=== PATIENT | male | born 1940 | race Caucasian/White ===

== ENCOUNTER → 2023-10-23 11:54 | Outpatient (REF) | payer OTHER, SELFPAY | LOC: RAD 11:54 | PROVIDERS: ATTENDING PHYSICIAN Nurse Practitioner Family | DX: M79.672 Pain in left foot (principal) | CPT/HCPCS: 73620 ==

== ENCOUNTER → 2023-11-07 17:17 | Outpatient (REF) | payer OTHER, SELFPAY | LOC: RAD 17:17 | PROVIDERS: ATTENDING PHYSICIAN Nurse Practitioner Family | DX: R31.9 Hematuria, unspecified (principal) | CPT/HCPCS: 76775 ==

== ENCOUNTER 2023-11-28 13:55 | Emergency (ER) | payer OTHER, SELFPAY ==
[2023-11-28 14:00] VITALS: BP 139/69
--- NOTE | 2023-11-28 14:27 | ED.GENMED ---
History of Present Illness
General
Chief Complaint: Musculo-Skeletal Complaint
Source: patient
Exam Limitations: none
Time Seen by Provider: 11/28/23 14:12
History of Present Illness
History of Present Illness:
See MDM
Past History
Past History
ED Past Medical History: None
ED Past Surgical History: Orthopedic
Social History
Tobacco: Non-smoker
Alcohol: Daily
Personal:
Living: with family
Phy Exam
Physical Exam
Physical Exam:
See MDM
Course
Orders/Labs/Results
Orders:
Orders
11/28/23 14:16
Finger(s)/Thumb 2 View Lt [CR Finger(s)/thumb Min 2 Vw Lt] Urgent
Comment:
Reason For Exam: pain and swelling
Indicate Which Finger:: Little Finger
11/28/23 14:20
Ketorolac [Toradol] 30 mg IV NOW STA
11/28/23 14:37
Complete Blood Count/With Diff Urgent
Comprehensive Metabolic Panel Urgent
Uric Acid Urgent
Abnormal Lab Results
11/28/23
14:37
RBC 4.03 L 10^6/uL
(4.70-6.10)
Hgb 11.9 L g/dL
(13.0-18.0)
Hct 35.9 L %
(39.0-52.0)
Absolute Monos (auto) 0.9 H 10^3/uL
(0.1-0.6)
Monocytes % 9.7 H %
(1.7-9.3)
Glucose 105 H mg/dl
(70-99)
11/28/23 14:37
11/28/23 14:37
Vital Signs
Initial and Last Documented VS:
Initial Vital Signs
Temp Pulse Resp BP Pulse Ox
97.7 F 82 18 139/69 97
11/28/23 14:00 11/28/23 14:00 11/28/23 14:00 11/28/23 14:00 11/28/23 14:00
Last Documented Vital Signs
Temp Pulse Resp BP Pulse Ox
97.7 F 82 18 139/69 97
11/28/23 14:00 11/28/23 14:00 11/28/23 14:00 11/28/23 14:00 11/28/23 14:00
MDM/Problems Addressed
Differential Diagnosis Includes:
HPI and MDM Narrative:
83-year-old male presenting for left finger pain and swelling. He has noticed it over the past few days. Denies any trauma or cuts. Movements hurt. He has noticed some red streaking going down his finger as well
The fingers concerning for flexor tenosynovitis versus possible gout. Will obtain x-rays and obtain basic blood work. Orthopedics made aware
Physical exam
General: Well appearing and non-toxic
HEENT: protecting airway
Neck: appears supple
CV: No evidence of cyanosis
Resp: No accessory muscle use
Abd: Non-distended
Extremities: Swelling and erythema to left finger without obvious cut. Red streaking going down the hand. Pain with passive extension of finger. Sensation and cap refill intact
Neuro: alert
Psych: Normal affect
Skin: Intact
Problems Addressed including Acute and Chronic Conditions affecting care:
1. Left pinky finger swelling
Acuity: acute
Prognosis: stable
Details: Concern for flexor tenosynovitis versus possible gout. Will obtain x-ray and blood work and discussed case with orthopedics
Updates
X-ray without fracture. White blood cell count normal. Case rediscussed with orthopedics who came down to evaluate the patient. Given the exam findings per the orthopedist, no cut in the finger and normal white blood cell count, we discussed
treating with steroids and follow-up in the orthopedic office next. Patient states he has a history of gout
Differential Diagnosis (but not limited to): Flexor tenosynovitis, trauma, gout
Testing considered: Blood culture
Drug therapy (if applicable): OTC meds, please see d/c instruction regarding Rx drugs
Amount and/or Complexity of Data Reviewed
Clinical info obtained from: Patient
External data reviewed: N/A
Labs I independently reviewed (but not limited to): White blood cell count normal
Radiology: X-ray independently reviewed: Finger x-ray negative for fracture
Pulse Ox: not hypoxic
EKG independently reviewed: N/A
Medical Laboratory Technicians: N/A
Critical Care: N/A
Risk of Complication:
Social Determinants of health: Good social support
Discussed with other providers: Orthopedics
Escalation of Care includes Admit/Obs: After being observed in the Emergency Department, pt stable for discharge.
Occasional wrong word or 'sound a like' substitutions may have occurred due to the inherent limitations of voice recognition software. Read the chart carefully and recognize, using context, where substitutions have occurred.
*Critical Care Note
Total Time (30-74mins, 75-104mins- exclusive of procedures): Not Applicable
ED Attending Note
-
Portions of this chart may have been created with voice recognition software.� Occasional wrong word or��sound alike� substitutions may have occurred due to the inherent limitations of voice recognition software.
Discharge Plan
Departure
Patient Disposition: Home (Routine Discharge)
Date of Disposition: 11/28/23
Time of Disposition: 15:47
Patient with high blood pressure during this ER visit?: No
Discharge Problem:
Gout
Instructions: Gout ED
Prescriptions:
New
prednisone 10 mg tablet
See Rx Instructions .ROUTE .COMPLEX Qty: 30 0RF
Rx Instructions:
4 tabs day 1-3, 3 tabs day 4-6, 2 tabs day 7-9, 1 tabs day 10-12
Referrals:
Yamil Crawford MD [Family Provider] -
Jc Baer MD [Active] -
Activity Restrictions/Additional Instructions:
The finger is consistent with likely gout. Please take the steroids as prescribed. The orthopedist that you met today is Dr. Baer. He is the hand surgeon. Please call his office tomorrow to make an appointment to see him next week. Please let
the office know that Dr. Baer saw you in the emergency department and wants to see you at some point next week.
Please return for any worsening symptoms.
You may return at any time if you have further concerns.
Interventions
Interventions:
*Risk Screen - Suicide Last Done: 11/28/23 14:00
*General Assessment Last Done: 11/28/23 14:00
*Neglect/Abuse Screening Last Done: 11/28/23 14:00
ED-Musculoskeletal Assessment Last Done: 11/28/23 14:22
ED-Skin Assessment Last Done: 11/28/23 14:22
Discharge Date and Time
Print Language: PERUVIAN
[2023-11-28 14:28] VITALS: BMI 26.3
[2023-11-28] MEDS: TORADOL 30 MG IV (14:42)
[2023-11-28 14:51] LABS: % Basophils 0.6 % (0-2); % Eosinophils 1.7 % (0-6); % Immature Granulocytes 0.4 % (0-0.5); % Lymphocytes 21.1 % (20.5-51.1); % Monocytes 9.7 % (1.7-9.3); % Neutrophils 66.5 % (42.2-75.2); Absolute Basophils 0.1 10^3/uL (0-0.2); Absolute Eosinophils 0.2 10^3/uL (0-0.7); Absolute Lymphocytes 1.9 10^3/uL (1.2-3.4); Absolute Monocytes 0.9 10^3/uL (0.1-0.6); Hematocrit 35.9 % (39.0-52.0); Hemoglobin 11.9 g/dL (13.0-18.0); Mean Corp Hgb Conc. 33.1 g/dL (33.0-37.0); Mean Corpuscular Hgb 29.5 pg (27.0-31.0); Mean Corpuscular Volume 89.1 fL (80.0-94.0); Mean Platelet Volume 9.9 fL (7.4-10.4); Nucleated Red Blood Cells % 0 % (-); Platelet Count 272 10^3/uL (130-400); Red Blood Cell Count 4.03 10^6/uL (4.70-6.10); Red Cell Dist. Width 12.8 % (11.5-14.5)
[2023-11-28 15:14] LABS: ALT (SGPT) 19 U/L (0-50); AST (SGOT) 24 U/L (17-59); Albumin 4.1 g/dl (3.5-5.0); Alkaline Phosphatase 64 U/L (38-126); Blood Urea Nitrogen 19 mg/dl (9-20); Calcium 9.3 mg/dl (8.4-10.2); Carbon Dioxide 27 mmol/L (22-30); Chloride 107 mmol/L (98-107); Estimated Creatinine Clearance 47 ml/min; Glucose 105 mg/dl (70-99); Potassium 4.2 mmol/L (3.5-5.1); Sodium 139 mmol/L (135-145); Total Bilirubin 0.7 mg/dl (0.2-1.3); Total Protein 6.8 g/dl (6.3-8.2); Uric Acid 7.3 mg/dl (3.5-8.5); eGFR 59.63
[2023-11-28] MEDS: DELTASONE 40 MG PO (15:54)
== END 2023-11-28 16:01 | disposition home or self-care (01) ==
LOC: EMR 13:55
PROVIDERS: EMERGENCY PHYSICIAN Student in an Organized Health Care Education/Training Program; FAMILY PHYSICIAN Internal Medicine Geriatric Medicine
DX: M10.9 Gout, unspecified (principal); R22.32 Localized swelling, mass and lump, left upper limb
CPT/HCPCS: 99283; 96374; 73140; 80053; 84550; 85025

== ENCOUNTER → 2023-12-05 14:45 | Outpatient (REF) | payer OTHER, SELFPAY | LOC: PAVMRI 14:45 | PROVIDERS: ATTENDING PHYSICIAN Nurse Practitioner Family | DX: R41.840 Attention and concentration deficit (principal); R41.3 Other amnesia | CPT/HCPCS: 70551 ==

== ENCOUNTER 2023-12-19 04:11 | Inpatient (IN) | payer OTHER, SELFPAY ==
[2023-12-18 23:54] VITALS: BP 130/63
[2023-12-19] VITALS (15 sets, daily range): BP systolic 91–152; BP diastolic 53–82; PULSE 75; BMI 25.9
[2023-12-19 00:48] LABS: Urine Albumin 1+ (Neg - Trace); Urine Bilirubin 1+ (Negative); Urine Character Slightly Cloudy (Clear); Urine Color Amber; Urine Glucose Negative (Negative); Urine Ketone 2+ (Negative); Urine Leukocyte Trace (Negative); Urine Nitrite Negative (Negative); Urine Occult Blood 4+ (Negative); Urine Specific Gravity 1.025 (<1.030); Urine Urobilinogen 1+ (Neg - 1+)
[2023-12-19 00:51] LABS: % Basophils 0.3 % (0-2); % Eosinophils 0.1 % (0-6); % Immature Granulocytes 0.4 % (0-0.5); % Monocytes 8.4 % (1.7-9.3); % Neutrophils 84.8 % (42.2-75.2); Absolute Immature Granulocytes 0.1 10^3/uL (0-0.05); Absolute Lymphocytes 0.8 10^3/uL (1.2-3.4); Absolute Monocytes 1.2 10^3/uL (0.1-0.6); Hematocrit 33.2 % (39.0-52.0); Hemoglobin 11.6 g/dL (13.0-18.0); Mean Corp Hgb Conc. 34.9 g/dL (33.0-37.0); Mean Corpuscular Hgb 30.2 pg (27.0-31.0); Mean Corpuscular Volume 86.5 fL (80.0-94.0); Mean Platelet Volume 11.1 fL (7.4-10.4); Nucleated Red Blood Cells % 0 % (-); Platelet Count 190 10^3/uL (130-400); Red Blood Cell Count 3.84 10^6/uL (4.70-6.10); Red Cell Dist. Width 13.2 % (11.5-14.5); White Blood Cell Count 14.1 10^3/uL (4.8-10.8)
[2023-12-19 00:56] LABS: ALT (SGPT) 36 U/L (0-50); AST (SGOT) 42 U/L (17-59); Albumin 4.3 g/dl (3.5-5.0); Alkaline Phosphatase 64 U/L (38-126); Blood Urea Nitrogen 28 mg/dl (9-20); Calcium 9.4 mg/dl (8.4-10.2); Carbon Dioxide 20 mmol/L (22-30); Chloride 103 mmol/L (98-107); Glucose 111 mg/dl (70-99); Potassium 4.8 mmol/L (3.5-5.1); Sodium 139 mmol/L (135-145); Total Bilirubin 2.4 mg/dl (0.2-1.3); Total Protein 7.1 g/dl (6.3-8.2); eGFR 54.17
[2023-12-19 00:57] LABS: COVID-19 Antigen Negative (Negative)
--- NOTE | 2023-12-19 01:31 | ED.GENMED ---
History of Present Illness
General
Chief Complaint: Fever
Source: patient and previous hospital records (ED visit November 28, 2023 with complaints of pain, swelling, redness left small digit.)
Exam Limitations: none
Time Seen by Provider: 12/19/23 01:15
Nursing documentation reviewed up to this point in time: agreed with
History of Present Illness
History of Present Illness:
This is an 83-year-old gentleman who resides at home independently. He has history of polyarthropathy, gout, hyperlipidemia as well as history of mild cognitive decline. Arrives via EMS tonight with complaints of bilateral foot pain that he admits
has been an ongoing issue for several months. He states he has an initial appointment with orthopedics versus podiatry tomorrow. Bilateral foot pain was worse tonight accompanied with generalized weakness and is noted to be acutely febrile with
oral temperature 101.4 �F. Patient was unaware that he was running a fever.
He was evaluated in this ED on November 27 with complaints of several day history of pain, redness and swelling left small finger. Concern was for acute gout versus tenosynovitis. Unremarkable laboratory studies, unremarkable x-ray imaging and no
evidence of skin abrasion etc. Evaluated at bedside by orthopedics and recommended a course of steroids. He was prescribed 12-day course of tapering steroids which he states he completed. He is unsure if there was any improvement in his finger
redness and swelling, perhaps mild improvement but it persists and may now be a bit worse.
He denies cough nor shortness of breath, no headache, no neck nor back pain.
He does admit to at least 6-month history of urinary frequency, intermittent dysuria but overall he believes this has been unchanged. No abdominal pain. No nausea or vomiting, no diarrhea or constipation. No recent falls.
He is unsure of his daily medications but upon review of records he is maintained on rosuvastatin, tamsulosin, donepezil.
Upon review of records, patient evaluated in the ED November 27, started on steroids and had a follow-up appointment with PCP December 02 which noted much improvement in pain and swelling of left little finger.
Past History
Past History
ED Past Medical History: Hypercholesterolemia (Mixed hyperlipidemia), Renal failure (Renal insufficiency) and Other (Polyarthritis, gout, mild dementia, BPH)
ED Past Surgical History: Orthopedic
Social History
Tobacco: Non-smoker
Alcohol: Daily (Occasional wine but has had no alcohol consumption for at least the past 3 to 4 weeks.)
Drug: None
Personal:
Living: with family
Employment: Retired
Family History
Family History: Other (Noncontributory)
Phy Exam
Physical Exam
Physical Exam:
GENERAL: 83-year-old gentleman appears his stated age, awake and alert, pleasant, appears in no acute distress. Mild confusion as to recent events but otherwise oriented x 3.
EYE: pupils equal and reactive. anicteric
NECK: Supple, nontender, no meningismus, no significant adenopathy.
ENT: posterior pharynx is clear, oral mucosa is moist. TM clear b/l, nares patent.
CARDIAC: Regular rate and rhythm. no murmur. No rub.
LUNGS: Clear breath sounds bilaterally, no acute respiratory distress, no wheezes/rales/rhonchi
ABDOMEN: Soft, nondistended, without focal tenderness, no r/g, no cvat. normoactive BS.
NEUROLOGICAL: Alert and oriented x3, no focal neuro deficits. Motor strength is 5/5 bilaterally. Gross sensation is intact.
SKIN: Mildly hot to touch and dry, normal color, small circular superficial subacute abrasion distal dorsal aspect of the left small digit.
MUSCULOSKELETAL: There is marked global erythema and soft tissue swelling of the left small digit with a small subacute superficial abrasion dorsal distal aspect of the left small digit. There is lymphangitis extending anteriorly from the left
small digit to the proximal palm. Markedly limited range of motion of left small digit related to pain. No fluctuance. There is marked erythema and joint effusion and pain bilateral first MTP joints as well as similar but less abundant soft
tissue swelling and erythema to the left fifth MTP joint. Moderate tenderness to bilateral distal feet. Peripheral pulses are full and equal b/l.
PSYCH: Normal and appropriate interaction.
Course
Orders/Labs/Results
Orders:
Orders
12/19/23 00:32
Comprehensive Metabolic Panel Urgent
12/19/23 00:33
COVID-19 Antigen Urgent
Source: Nasal Swab
Complete Blood Count/With Diff Urgent
Lactic Acid Q4H
Comment: ON ICE, CANCEL 2ND ORDER IF FIRST LACTIC ACID LEVEL <2
Urinalysis Reflex To Culture Urgent
Date Specimen was Collected: 12/19/23
Time Specimen was Collected: 00:00
Urine Microscopic Reflex Cult Urgent
12/19/23 01:27
Blood Culture Urgent
ELOISE Source: Blood/Venous
Specimen Description:
12/19/23 01:28
Add On- LAB Urgent
Tests Added?: uric acid; sed rate; CRP
Acetaminophen [Tylenol] 650 mg PO NOW STA
12/19/23 01:30
0.9% Sodium Chloride 1000 ml [Nss] 2,000 ml IV BOLUS
Foot, Left 3 View [CR Foot - Left Min 3 Views] Urgent
Comment:
Reason For Exam: pain swelling redness MTP hallux, MTP 5th toe
Foot, Right 3 View [CR Foot - Right Min 3 Views] Urgent
Comment:
Reason For Exam: pain, swelling, redness MTP hallux
12/19/23 04:00
Lactic Acid Q4H
Comment: ON ICE, CANCEL 2ND ORDER IF FIRST LACTIC ACID LEVEL <2
Abnormal Lab Results
12/19/23 12/19/23
00:32 00:33
WBC 14.1 H 10^3/uL
(4.8-10.8)
RBC 3.84 L 10^6/uL
(4.70-6.10)
Hgb 11.6 L g/dL
(13.0-18.0)
Hct 33.2 L %
(39.0-52.0)
MPV 11.1 H fL
(7.4-10.4)
Abs Immat Gran (auto) 0.1 H 10^3/uL
(0-0.05)
Absolute Neuts (auto) 12.0 H 10^3/uL
(1.4-6.5)
Absolute Lymphs (auto) 0.8 L 10^3/uL
(1.2-3.4)
Absolute Monos (auto) 1.2 H 10^3/uL
(0.1-0.6)
Neutrophils % 84.8 H %
(42.2-75.2)
Lymphocytes % 6.0 L %
(20.5-51.1)
Carbon Dioxide 20 L mmol/L
(22-30)
BUN 28 H mg/dl
(9-20)
Glucose 111 H mg/dl
(70-99)
Total Bilirubin 2.4 H mg/dl
(0.2-1.3)
Urine Ketones 2+ A
(Negative)
Ur Occult Blood Reflex 4+ A
(Negative)
Urine Bilirubin 1+ A
(Negative)
Leukocyte Esterase Rfl Trace A
(Negative)
Urine Albumin (Reflex) 1+ A
(Neg - Trace)
12/19/23 00:33
12/19/23 00:32
Vital Signs
Initial and Last Documented VS:
Initial Vital Signs
Temp Pulse Resp BP Pulse Ox
101.3 F H 106 20 130/63 96
12/18/23 23:54 12/18/23 23:54 12/18/23 23:54 12/18/23 23:54 12/18/23 23:54
Last Documented Vital Signs
Temp Pulse Resp BP Pulse Ox
101.3 F H 106 20 130/63 96
12/18/23 23:54 12/18/23 23:54 12/18/23 23:54 12/18/23 23:54 12/18/23 23:54
MDM/Problems Addressed
Differential Diagnosis Includes:
Patient presents with generalized weakness found to be acutely febrile.
Is noted to have generalized erythema and joint swelling of left small digit as well as bilateral feet primarily MTP joints. He admits that bilateral foot swelling and pain has been an ongoing issue for several weeks perhaps months thus acute fever
is less likely infectious arthropathy and probably more consistent with inflammatory arthropathy such as gout versus pseudogout.
With acute fever however must consider infectious arthropathy. Other consideration is UTI. Less likely COVID.
Chronic conditions affecting care: Psychiatric illness (Mild dementia), Kidney disease (Renal insufficiency) and Other (Concern for potential gout, polyarthropathy)
*Pulse Oximetry
Patient hypoxic: no
*Critical Care Note
Total Time (30-74mins, 75-104mins- exclusive of procedures): Not Applicable
Update Note
Update Note:
Labs show moderately elevated white blood cell count of 14.1, has trended up from normal level on November 27.
Creatinine essentially stable, 1.2 November 27, currently 1.3.
Total bili has trended up to 2.4 from 0.7 November 27. All other LFTs are normal. Patient has had no abdominal pain complaints and abdomen is soft and nontender.
Lactic acid is normal at 1.6.
Blood cultures have been added.
Urinalysis suspicious for UTI with greater than 100 RBCs, 15 WBCs and many bacteria.
COVID testing is negative.
Uric acid, CRP and sed rate are pending but will initiate IV antibiotic for coverage of UTI and due to advanced age, fever, concern for SIRS and also some concern for tenosynovitis left small digit, infectious polyarthropathy will admit to
hospitalist service.
ED Attending Note
-
Portions of this chart may have been created with voice recognition software.� Occasional wrong word or��sound alike� substitutions may have occurred due to the inherent limitations of voice recognition software.
Discharge Plan
Departure
Patient Disposition: Admit
Date of Disposition: 12/19/23
Time of Disposition: 01:59
Admit to: Med/Surg
Admit to doctor: Krish
Presentation/result/management discussed w/ accepting /DO: Hospitalist
Condition: Fair
Discharge Problem:
acute fever r/o sepsis, SIRS (systemic inflammatory response syndrome), Acute UTI (urinary tract infection), polyarthritis b/l feet, left small digit, cellulitis left small digit
Prescriptions:
No Action
prednisone 10 mg tablet
See Rx Instructions .ROUTE .COMPLEX Qty: 30 0RF
Rx Instructions:
4 tabs day 1-3, 3 tabs day 4-6, 2 tabs day 7-9, 1 tabs day 10-12
Referrals:
Zafar Miller DO [Family Provider] -
Discharge Date and Time
Print Language: MONGOLIAN
[2023-12-19 01:35] LABS: Lactic Acid 1.6 mmol/L (0.7-2.0)
[2023-12-19 01:38] LABS: Urine Amorphous Seen; Urine Bacteria Many (Negative); Urine Mucus Many; Urine Red Blood Cell >100 /HPF (0-2); Urine Squamous Cell >30 /LPF (Few)
[2023-12-19 02:04] LABS: Uric Acid 7.3 mg/dl (3.5-8.5)
[2023-12-19] MEDS: TYLENOL 650 MG PO (02:05)
[2023-12-19] MEDS: ZOSYN 50 IV ×4 (02:06→20:29)
[2023-12-19] MEDS: NSS 2000 IV (02:07)
[2023-12-19 02:25] LABS: Erythrocyte Sed Rate 48 mm/hour (0-20)
--- NOTE | 2023-12-19 02:28 | HPS.HSE ---
Family Physician
-
Family Physician: Zafar Miller
Chief Complaint
-
Joint Pain, Fatigue
History of Present Illness
Patient is an 83y M with PMH significant for senile dementia and gout who presents to ED complaining of bilateral foot pain. Patient notes that his foot pain has been ongoing for months. He was seen here in the ED on 11/27 with complaints of L
hand / finger pain. He was seen by Ortho in the ED and treated with a course of oral prednisone. He states that his symptoms did not improve much.
Patient called EMS this evening complaining of foot pain and was brought to the ED for evaluation.
At present, patient has difficulty recalling why he was brought to the ED. History is somewhat difficult to obtain.
He denies any sore throat, cough, N/V/D. He does report some burning with urination.
Medical History
Past Medical History
Past Medical History: Reports Other
Additional Past Medical History:
Senile Dementia
Gout
Past Surgical History: Reports Other
Additional Past Surgical History:
T&A
Social History
Tobacco: Non-smoker
Alcohol: None
Drug: None
Family History
Family History: Not pertinent
Allergies / Home Medications
Allergies reflects when Allergies were last updated in [facility].
Home Medications with original date entered in [facility]
Allergy/Medication List:
Allergies
Allergy/AdvReac Type Severity Reaction Status Date / Time
No Known Allergies Allergy Verified 12/18/23 23:54
Home Medications
prednisone 10 mg tablet See Rx Instructions .Route .COMPLEX #30 tabs 11/28/23
Review of Systems
-
History Source: Patient
A 12 point ROS was completed and negative except as noted: Yes
Constitutional: Reports Fatigue; Denies Fever or Chills
EENT: Denies Sore Throat
Respiratory: Denies Cough or Trouble Breathing
Cardiac: Denies Chest Pain or Palpitations
Abdomen/GI: Denies Abdominal Pain, Nausea, Vomiting or Diarrhea
: Reports Dysuria; Denies Incontinence
Musculoskeletal: Reports Joint Pain and Joint Swelling
Skin: Reports Other (Redness)
Neurological: Denies Dizzy or Headache
Psych: Reports Dementia; Denies Depression or Anxiety
Physical Exam
Vital Signs
Vital Signs
Temp Pulse Resp BP Pulse Ox
101.3 F H 80 16 138/68 96
12/18/23 23:54 12/19/23 02:15 12/19/23 02:15 12/19/23 01:03 12/19/23 01:30
Physical Exam
General: Other (83y M in no acute distress.)
HEENT: Moist mucous membranes and PERRLA
Respiratory: Clear; No Wheezes, Rales or Rhonchi
Cardiac: S1/S2 and Regular Rhythm; No Murmur
GI: Soft, Non Tender, Non Distended and Normal Bowel Sounds
Musculoskeletal: No Clubbing, No Cyanosis and Other (L 5th finger contracted / tender / erythematous - small abrasion over distal phalanx. b/l 1st MTP edema, erythema, tenderness.)
Neuro: Awake and Alert; No Oriented
Laboratory Results
-
12/19/23 00:33
12/19/23 00:32
Laboratory Results
Lactic Acid Cancelled 12/19/23 04:00
Total Bilirubin 2.4 mg/dl (0.2-1.3) H 12/19/23 00:32
AST 42 U/L (17-59) 12/19/23 00:32
ALT 36 U/L (0-50) 12/19/23 00:32
Alkaline Phosphatase 64 U/L (38-126) 12/19/23 00:32
Impression/Plan
-
A/P: Patient is an 83y M with PMH significant for gout and dementia who presents to ED complaining of bilateral foot pain.
Fever
Polyarthritis
- Admit for further evaluation and treatment.
- Seems likely that current symptoms represent gout / pseudogout.
- History is impaired by patient's cognitive issues.
- He was seen by Ortho after 11/27 ED visit and L 5th finger symptoms had improved on steroids.
- Now with recurrent L 5th finger erythema and bilateral 1st MTP erythema.
- Restart oral prednisone 40mg daily for now.
- Empiric abx given fever and follow-up culture data, clinical course, etc.
- Ortho evaluation.
- Check ESR, uric acid, etc.
Possible UTI
- Patient does complain of some dysuria.
- UA with RBC > WBC and negative nitrites - does not seem c/w infection.
- Also > 30 squamous cells indicating contaminated specimen.
- On abx as stated above. Follow-up culture results.
Hyperbilirubinemia
- Bilirubin today is 2.4. Previously normal / no h/o elevation.
- Given fever and hyperbili, will check abdominal US for further evaluation.
Senile Dementia
- Patient awake and alert but fairly confused in regards to details, history, etc in the ED.
- ? degree of acute TME due to infection, fever, etc.
- However, recent OP evaluation included MRI done on 12/04 which showed SEVERE bitemporal wasting c/w dementia.
- Suspect significant degree of chronic / progressive cognitive impairment.
- Note that patient currently lives alone / independently.
- Case Management evaluation for discharge planning.
DVT Prophylaxis: SCDs
Code Status: Full
[2023-12-19 05:29] LABS: Hematocrit 28.3 % (39.0-52.0); Hemoglobin 9.9 g/dL (13.0-18.0); Mean Corpuscular Hgb 30.6 pg (27.0-31.0); Mean Corpuscular Volume 87.3 fL (80.0-94.0); Mean Platelet Volume 10.9 fL (7.4-10.4); Platelet Count 179 10^3/uL (130-400); Red Blood Cell Count 3.24 10^6/uL (4.70-6.10); Red Cell Dist. Width 13.2 % (11.5-14.5); White Blood Cell Count 11.9 10^3/uL (4.8-10.8)
[2023-12-19 05:54] LABS: Blood Urea Nitrogen 27 mg/dl (9-20); Calcium 8.2 mg/dl (8.4-10.2); Carbon Dioxide 20 mmol/L (22-30); Chloride 107 mmol/L (98-107); Glucose 117 mg/dl (70-99); Potassium 4.3 mmol/L (3.5-5.1); Sodium 140 mmol/L (135-145); eGFR 59.63
[2023-12-19 06:21] LABS: TSH Reflex To Free T4 0.97 uIU/ml (0.47-4.68)
--- NOTE | 2023-12-19 07:54 | W.PN.UPDATE ---
Update Note
Progress Note Update
Full orthopedic consult dictated:
Dx: Polyarthritis (bilateral feet first MTP joint and left fifth finger) suspect likely gout/pseudogout
Plan: Agree with restarting oral prednisone, further workup for infectious process and check uric acid and observe for now.
--- NOTE | 2023-12-19 07:55 | EDRN ---
admission orders processed, pharmacy notified
--- NOTE | 2023-12-19 07:56 | EDRN ---
the pt is resting in stretcher in the lowest position, side rails up x2, call brantley within reach, HOB elevated, no s/s of distress, VS WNL, the pt is now afebrile, the pt has no c/o pain currently, no c/o SOB, the pt was oriented to using the call
brantley and the pt verbally stated that he understood, assessment documented in [facility], will continue to monitor the pt closely
[2023-12-19] MEDS: DELTASONE 40 MG PO (08:36)
[2023-12-19] MEDS: PROTONIX 40 MG PO (08:36)
[2023-12-19] MEDS: NSS 1000 IV ×2 (08:38→20:29)
--- NOTE | 2023-12-19 09:03 | EDRN ---
the pt was able to take his PO medications with water with no problem, VS WNL, NSS running at 125cc/hour, the pt was offered breakfast and the pt stated that he was not hungry, will continue to monitor the pt closely
--- NOTE | 2023-12-19 09:10 | EDRN ---
the pt pressed the call brantley and this RN entered the pts room, the pt stated that he had a bowel movement and was not able to hold it in, this RN cleaned the pt up and changed the pts gown, brief, and linens, the pt is now resting ins tretcher in
the lowest position, side rails up x2, call brantley within reach, HOB elevated, no s/s of distress, will continue to monitor the pt closely
--- NOTE | 2023-12-19 09:15 | EDRN ---
the pt was bladder scanned and straight cathed by this RN, per provider orders, the pt tolerated, the pt is resting in stretcher in the lowest position, side rails up x2, call brantley within reach, HOB elevated, no s/s of distress, will continue to
monitor the pt closelty
--- NOTE | 2023-12-19 10:07 | EDRN ---
IV team spoke to Dr. Hebert and confirmed that the pts LCW Dye central line is torn
--- NOTE | 2023-12-19 10:28 | W.PN.UPDATE ---
Update Note
Progress Note Update
Seen and examined independent of overnight physician. states improvement in foot pain.
General: nad,
HEENT: Moist mucous membranes
Respiratory: Clear; No Wheezes, Rales or Rhonchi
Cardiac: S1/S2 and Regular Rhythm; No Murmur
GI: Soft, Non Tender, Non Distended and Normal Bowel Sounds
Musculoskeletal: No Clubbing, No Cyanosis and Other (L 5th finger contracted / tender / erythematous - small abrasion over distal phalanx. b/l 1st MTP edema, erythema, tenderness.). LE no significant edema
Neuro: Awake and Alert; No Oriented
A/P: Patient is an 83y M with PMH significant for gout and dementia who presents to ED complaining of bilateral foot pain.
Polyarthritis
- Seems likely that current symptoms represent gout / pseudogout.
- History is impaired by patient's cognitive issues.
- He was seen by Ortho after 11/27 ED visit and L 5th finger symptoms had improved on steroids.
- Now with recurrent L 5th finger erythema and bilateral 1st MTP erythema.
- Restart oral prednisone 40mg daily for now.
- Ortho evaluation-agrees with steroids
- ESR/CRP high.
Sepsis likely 2/2 UTI-poa
- Patient does complain of some dysuria.
- UA with RBC > WBC and negative nitrites - does not seem c/w infection.
- Also > 30 squamous cells indicating contaminated specimen.
- On abx as stated above. Follow-up culture results. IVF for now and can be stopped later.
Hyperbilirubinemia
- Bilirubin today is 2.4. Previously normal / no h/o elevation.
- Given fever and hyperbili, will check abdominal US for further evaluation.
Senile Dementia
- Patient awake and alert but fairly confused in regards to details, history, etc in the ED.
- ? degree of acute TME due to infection, fever, etc.
- However, recent OP evaluation included MRI done on 8/15 which showed SEVERE bitemporal wasting c/w dementia.
- Suspect significant degree of chronic / progressive cognitive impairment.
- Note that patient currently lives alone / independently.
- Case Management evaluation for discharge planning.
DVT Prophylaxis: start lovenox
Code Status: Full
--- NOTE | 2023-12-19 10:43 | EDRN ---
the pt came back from ultrasound, the pt was placed back on the monitor, VS WNL, breakfast arrived and was warmed up for the pt per the pts request, the pt is sitting up in the stretcher eating breakfast, no complaints offered, will continue to
monitor the pt closely
--- NOTE | 2023-12-19 11:00 | EDRN ---
PT and OT came to the pts bedside and the pt refused because he stated that he was still eating his breakfast, PT and OT stated that they will come back, the pt is resting in stretcher in the lowest position, side rails up x2, call brantley within
reach, HOB elevated, no s/s of distress, VS WNL, the pt stated to this RN, 'I feel so much better after that catheter, i don't have anymore pain or pressure', will continue to monitor the pt closely
--- NOTE | 2023-12-19 11:11 | EDRN ---
this RN called the receiving unit and notified them that paper report was going to be tubed up
[2023-12-19 11:15] LABS: ALT (SGPT) 33 U/L (0-50); AST (SGOT) 48 U/L (17-59); Albumin 3.4 g/dl (3.5-5.0); Alkaline Phosphatase 53 U/L (38-126); Direct Bilirubin 0.5 mg/dl (0.0-0.4); Total Bilirubin 2.3 mg/dl (0.2-1.3); Total Protein 5.9 g/dl (6.3-8.2)
[2023-12-19] MEDS: FLOMAX 0.4 MG PO (12:04)
[2023-12-19] MEDS: LOVENOX 40 MG SC (18:02)
[2023-12-19] MEDS: CRESTOR 5 MG PO (18:02)
[2023-12-19] MEDS: ARICEPT 5 MG PO (21:29)
[2023-12-20] MEDS: ZOSYN 50 IV ×2 (02:31→09:30)
[2023-12-20 07:24] LABS: % Basophils 0.2 % (0-2); % Eosinophils 0.1 % (0-6); % Immature Granulocytes 0.7 % (0-0.5); % Lymphocytes 9.6 % (20.5-51.1); % Neutrophils 83.4 % (42.2-75.2); Absolute Immature Granulocytes 0.1 10^3/uL (0-0.05); Absolute Lymphocytes 1.2 10^3/uL (1.2-3.4); Absolute Monocytes 0.7 10^3/uL (0.1-0.6); Absolute Neutrophils 10.3 10^3/uL (1.4-6.5); Hemoglobin 9.8 g/dL (13.0-18.0); Mean Corp Hgb Conc. 33.8 g/dL (33.0-37.0); Mean Corpuscular Hgb 30.7 pg (27.0-31.0); Mean Corpuscular Volume 90.9 fL (80.0-94.0); Mean Platelet Volume 11.4 fL (7.4-10.4); Nucleated Red Blood Cells % 0 % (-); Platelet Count 180 10^3/uL (130-400); Red Blood Cell Count 3.19 10^6/uL (4.70-6.10); White Blood Cell Count 12.4 10^3/uL (4.8-10.8)
[2023-12-20 07:56] LABS: ALT (SGPT) 32 U/L (0-50); AST (SGOT) 56 U/L (17-59); Albumin 2.9 g/dl (3.5-5.0); Alkaline Phosphatase 49 U/L (38-126); Blood Urea Nitrogen 26 mg/dl (9-20); Calcium 8.5 mg/dl (8.4-10.2); Carbon Dioxide 22 mmol/L (22-30); Chloride 112 mmol/L (98-107); Estimated Creatinine Clearance 52 ml/min; Glucose 113 mg/dl (70-99); Potassium 4.2 mmol/L (3.5-5.1); Sodium 144 mmol/L (135-145); Total Bilirubin 0.6 mg/dl (0.2-1.3); Total Protein 5.4 g/dl (6.3-8.2); eGFR > 60.00
[2023-12-20 08:00] VITALS: BP 117/55
--- NOTE | 2023-12-20 08:17 | W.PN.UPDATE ---
Update Note
Progress Note Update
pt seen this AM; reports improving pain in his finger and 1st MTP; mild erythema of the left SF, moderate soft tissue swelling and mild erythema of the 1st MTP; more likely inflammatory arthropathy
-recommend continuing treatment with steroids, hold ABX; if symptoms worsen/do not respond to steroids and there is further concern for infection, please reengage with orthopedics; will follow peripherally at this time.
[2023-12-20] MEDS: FLOMAX 0.4 MG PO (09:35)
[2023-12-20] MEDS: DELTASONE 40 MG PO (09:35)
[2023-12-20] MEDS: PROTONIX 40 MG PO (09:35)
--- NOTE | 2023-12-20 12:19 | W.PN.HOSP.TC ---
Today's Communication/Plan
-
monitor off abx
check orthos
if positive, start IVF
PT/OT
Assessment / Plan
Assessment / Plan
General: nad,
HEENT: Moist mucous membranes
Respiratory: Clear; No Wheezes, Rales or Rhonchi
Cardiac: S1/S2 and Regular Rhythm; No Murmur
GI: Soft, Non Tender, Non Distended and Normal Bowel Sounds
Musculoskeletal: No Clubbing, No Cyanosis and Other (L 5th finger contracted / tender / erythematous - small abrasion over distal phalanx. b/l 1st MTP edema,
Neuro: Awake and Alert; No Oriented
A/P: Patient is an 83y M with PMH significant for gout and dementia who presents to ED complaining of bilateral foot pain.
Polyarthritis
- Seems likely that current symptoms represent gout / pseudogout.
- History is impaired by patient's cognitive issues.
- He was seen by Ortho after 11/27 ED visit and L 5th finger symptoms had improved on steroids.
- Now with recurrent L 5th finger erythema and bilateral 1st MTP erythema.
- Restart oral prednisone 40mg daily for now.
- Ortho evaluation-agrees with steroids and recs to stop abx.
- ESR/CRP high.
SIRS unclear
- Also > 30 squamous cells indicating contaminated specimen. Ucx with contamination. dc abx
Hyperbilirubinemia
- Bilirubin today is 2.4. Previously normal / no h/o elevation.
-abdomen US with no gallstone, cholecystitis biliary ductal dilatation. Mild hepatic steatosis. Subcentimeter echogenic structure with some biliary representing hemangioma however there is no prior imaging of the liver. Left renal calculi
nonobstructive. No hydronephrosis.
Senile Dementia
- Patient awake and alert but fairly confused in regards to details, history, etc in the ED.
- ? degree of acute TME due to infection, fever, etc.
- However, recent OP evaluation included MRI done on 12/04 which showed SEVERE bitemporal wasting c/w dementia.
- Suspect significant degree of chronic / progressive cognitive impairment.
- Case Management evaluation for discharge planning.
DVT Prophylaxis: start lovenox
Code Status: Full
PT/OT-CM.
Anticipated Discharge: Within 24 hours
Subjective/Interval History
-
Date of Service: December 20, 2023
states improvement in 5th digit erythema
states of some dizziness
Objective Data
-
Labs:
Laboratory Results
12/20/23
06:33
WBC 12.4 H
Hgb 9.8 L
Hct 29.0 L
Plt Count 180
Sodium 144
Potassium 4.2
Chloride 112 H
Carbon Dioxide 22
BUN 26 H
Creatinine 1.1
Glucose 113 H
Calcium 8.5
Total Bilirubin 0.6 D
AST 56
ALT 32
Alkaline Phosphatase 49
Vital Signs:
Vital Signs
Temp Pulse Resp BP Pulse Ox
98.0 F 76 18 117/55 99
12/20/23 08:00 12/20/23 08:00 12/20/23 08:00 12/20/23 08:00 12/20/23 08:00
I&O
12/19/23 12/20/23 12/21/23
06:59 06:59 06:59
Intake Total 1010 / 1010 720 / 720
Output Total 570 / 570 1000 / 1000
Balance 440 / 440 -280 / -280
[2023-12-20 13:55] VITALS: BP 144/64; BP 148/68; BP 96/67; PULSE 71; PULSE 73
[2023-12-20] MEDS: LR 1000 IV (15:04)
[2023-12-20 15:30] VITALS: BP 141/68
[2023-12-20 16:38] VITALS: BP 136/69; BP 145/67; PULSE 88; O2SAT 99
--- NOTE | 2023-12-20 16:54 | CM ---
Alert awake confused patient who lives with his Olivia who lives in special care at [facility]. Spoke with Cady at Independent living [facility] .
Pt is confused. He uses no adaptive devices.
No VN hx /No SNF hx
Pharmacy [facility] [address]
PCP DR Carlson
PLAN AWill need PT OT . Probable home with VN
[2023-12-20] MEDS: LOVENOX 40 MG SC (18:14)
[2023-12-20] MEDS: CRESTOR 5 MG PO (18:15)
[2023-12-20] MEDS: ARICEPT 5 MG PO (21:01)
[2023-12-20 23:00] VITALS: BP 118/61
[2023-12-21 08:00] VITALS: BP 120/61
[2023-12-21 08:29] LABS: % Basophils 0.1 % (0-2); % Immature Granulocytes 0.5 % (0-0.5); % Lymphocytes 12.1 % (20.5-51.1); % Monocytes 5.3 % (1.7-9.3); Absolute Immature Granulocytes 0.1 10^3/uL (0-0.05); Absolute Lymphocytes 1.4 10^3/uL (1.2-3.4); Absolute Monocytes 0.6 10^3/uL (0.1-0.6); Absolute Neutrophils 9.2 10^3/uL (1.4-6.5); Hematocrit 28.9 % (39.0-52.0); Hemoglobin 9.7 g/dL (13.0-18.0); Mean Corp Hgb Conc. 33.6 g/dL (33.0-37.0); Mean Corpuscular Hgb 30.6 pg (27.0-31.0); Mean Corpuscular Volume 91.2 fL (80.0-94.0); Mean Platelet Volume 11.7 fL (7.4-10.4); Nucleated Red Blood Cells % 0 % (-); Platelet Count 197 10^3/uL (130-400); Red Blood Cell Count 3.17 10^6/uL (4.70-6.10); Red Cell Dist. Width 13.3 % (11.5-14.5); White Blood Cell Count 11.2 10^3/uL (4.8-10.8)
[2023-12-21 08:42] LABS: ALT (SGPT) 35 U/L (0-50); AST (SGOT) 49 U/L (17-59); Albumin 3.1 g/dl (3.5-5.0); Alkaline Phosphatase 49 U/L (38-126); Blood Urea Nitrogen 22 mg/dl (9-20); Calcium 8.9 mg/dl (8.4-10.2); Carbon Dioxide 22 mmol/L (22-30); Chloride 111 mmol/L (98-107); Estimated Creatinine Clearance 57 ml/min; Glucose 112 mg/dl (70-99); Potassium 4.7 mmol/L (3.5-5.1); Sodium 143 mmol/L (135-145); Total Bilirubin 0.4 mg/dl (0.2-1.3); Total Protein 5.5 g/dl (6.3-8.2); eGFR > 60.00
[2023-12-21] MEDS: DELTASONE 40 MG PO (09:32)
[2023-12-21] MEDS: FLOMAX 0.4 MG PO (09:32)
[2023-12-21] MEDS: PROTONIX 40 MG PO (09:32)
--- NOTE | 2023-12-21 11:50 | W.PN.HOSP.TC ---
Today's Communication/Plan
-
Monitor symptoms
Home health care set up
Spouse asking for time for home set up to be completed
Monitor off IV fluids
Assessment / Plan
Assessment / Plan
General: nad,
HEENT: Moist mucous membranes
Respiratory: Clear; No Wheezes, Rales or Rhonchi
Cardiac: S1/S2 and Regular Rhythm; No Murmur
GI: Soft, Non Tender, Non Distended and Normal Bowel Sounds
Musculoskeletal: No Clubbing, No Cyanosis and Other (L 5th finger contracted / tender / erythematous - small abrasion over distal phalanx. b/l 1st MTP edema,
Neuro: Awake and Alert; No Oriented
A/P: Patient is an 83y M with PMH significant for gout and dementia who presents to ED complaining of bilateral foot pain.
Polyarthritis
- Seems likely that current symptoms represent gout / pseudogout.
- History is impaired by patient's cognitive issues.
- He was seen by Ortho after 11/27 ED visit and L 5th finger symptoms had improved on steroids.
- Now with recurrent L 5th finger erythema and bilateral 1st MTP erythema.
- Restart oral prednisone 40mg daily for now.
- Ortho evaluation-agrees with steroids and recs to stop abx.
- ESR/CRP high. Patient with significant improvement in lower extremity joints
SIRS unclear
-Also > 30 squamous cells indicating contaminated specimen. Ucx with contamination. dc abx
-blood cultures are negative.
Hyperbilirubinemia
- Bilirubin today is 2.4. Previously normal / no h/o elevation. Resolved.
-abdomen US with no gallstone, cholecystitis biliary ductal dilatation. Mild hepatic steatosis. Subcentimeter echogenic structure with some biliary representing hemangioma however there is no prior imaging of the liver. Left renal calculi
nonobstructive. No hydronephrosis.
Altered mental status likely secondary to progression of undiagnosed dementia suspected Alzheimer vs. low likelihood of delirum
- However, recent OP evaluation included MRI done on 12/04 which showed SEVERE bitemporal wasting c/w dementia.
- Suspect significant degree of chronic / progressive cognitive impairment.
- Case Management evaluation for discharge planning.
DVT Prophylaxis: start lovenox
Code Status: Full
PT/OT-home health. Cm aware.
Discussed with patient spouse over the phone once again in complete details. Explained to her the MRI finding results. Seems spouse is not ready to accept diagnosis of memory loss/dementia
Anticipated Discharge: Within 24 hours
Subjective/Interval History
-
Date of Service: December 21, 2023
states improvement in Left 5th digit pain/swelling
states improvement in feet pain/swelling
Objective Data
-
Labs:
Laboratory Results
12/21/23
05:11
WBC 11.2 H
Hgb 9.7 L
Hct 28.9 L
Plt Count 197
Sodium 143
Potassium 4.7
Chloride 111 H
Carbon Dioxide 22
BUN 22 H
Creatinine 1.0
Glucose 112 H
Calcium 8.9
Total Bilirubin 0.4
AST 49
ALT 35
Alkaline Phosphatase 49
Vital Signs:
Vital Signs
Temp Pulse Resp BP Pulse Ox
97.5 F 52 16 120/61 98
12/21/23 08:00 12/21/23 08:00 12/21/23 08:00 12/21/23 08:00 12/21/23 08:00
I&O
12/20/23 12/21/23 12/22/23
06:59 06:59 06:59
Intake Total 1010 / 1010 1760 / 1760
Output Total 570 / 570 1825 / 1825
Balance 440 / 440 -65 / -65
[2023-12-21 15:50] VITALS: BP 127/59
[2023-12-21] MEDS: LOVENOX 40 MG SC (17:01)
[2023-12-21] MEDS: CRESTOR 5 MG PO (17:02)
[2023-12-21] MEDS: ARICEPT 5 MG PO (21:18)
[2023-12-21 23:00] VITALS: BP 106/83
[2023-12-22 07:44] LABS: % Basophils 0.2 % (0-2); % Immature Granulocytes 0.5 % (0-0.5); % Lymphocytes 16.4 % (20.5-51.1); % Monocytes 6.5 % (1.7-9.3); % Neutrophils 76.4 % (42.2-75.2); Absolute Immature Granulocytes 0.1 10^3/uL (0-0.05); Absolute Lymphocytes 1.7 10^3/uL (1.2-3.4); Absolute Monocytes 0.7 10^3/uL (0.1-0.6); Absolute Neutrophils 8.1 10^3/uL (1.4-6.5); Hematocrit 27.8 % (39.0-52.0); Hemoglobin 9.4 g/dL (13.0-18.0); Mean Corp Hgb Conc. 33.8 g/dL (33.0-37.0); Mean Corpuscular Hgb 30.2 pg (27.0-31.0); Mean Corpuscular Volume 89.4 fL (80.0-94.0); Mean Platelet Volume 11.5 fL (7.4-10.4); Nucleated Red Blood Cells % 0 % (-); Platelet Count 231 10^3/uL (130-400); Red Blood Cell Count 3.11 10^6/uL (4.70-6.10); Red Cell Dist. Width 13.4 % (11.5-14.5); White Blood Cell Count 10.6 10^3/uL (4.8-10.8)
[2023-12-22 08:01] LABS: ALT (SGPT) 33 U/L (0-50); AST (SGOT) 36 U/L (17-59); Alkaline Phosphatase 54 U/L (38-126); Blood Urea Nitrogen 23 mg/dl (9-20); Calcium 8.7 mg/dl (8.4-10.2); Carbon Dioxide 22 mmol/L (22-30); Chloride 112 mmol/L (98-107); Estimated Creatinine Clearance 57 ml/min; Glucose 92 mg/dl (70-99); Potassium 4.4 mmol/L (3.5-5.1); Sodium 143 mmol/L (135-145); Total Bilirubin 0.3 mg/dl (0.2-1.3); Total Protein 5.4 g/dl (6.3-8.2); eGFR > 60.00
[2023-12-22 08:21] VITALS: BP 133/64
[2023-12-22] MEDS: DELTASONE 40 MG PO (09:07)
[2023-12-22] MEDS: PROTONIX 40 MG PO (09:07)
[2023-12-22] MEDS: FLOMAX 0.4 MG PO (09:07)
--- NOTE | 2023-12-22 11:36 | W.PN.HOSP.TC ---
Today's Communication/Plan
-
Check stool studies
Anemia panel
Trend CBC
Monitor
Assessment / Plan
Assessment / Plan
General: nad,
HEENT: Moist mucous membranes
Respiratory: Clear; No Wheezes, Rales or Rhonchi
Cardiac: S1/S2 and Regular Rhythm; No Murmur
GI: Soft, Non Tender, Non Distended and Normal Bowel Sounds
Musculoskeletal: No Clubbing, No Cyanosis and Other (L 5th finger contracted / tender / erythematous - small abrasion over distal phalanx. b/l 1st MTP edema improved.
Neuro: Awake and Alert; No Oriented
A/P: Patient is an 83y M with PMH significant for gout and dementia who presents to ED complaining of bilateral foot pain.
Polyarthritis
- Seems likely that current symptoms represent gout / pseudogout.
- History is impaired by patient's cognitive issues.
- He was seen by Ortho after 11/27 ED visit and L 5th finger symptoms had improved on steroids.
- Now with recurrent L 5th finger erythema and bilateral 1st MTP erythema.
- Restart oral prednisone 40mg daily for now.
- Ortho evaluation-agrees with steroids and recs to stop abx.
- ESR/CRP high. Patient with significant improvement in lower extremity joints
Sepsis suspected secondary to viral gastroenteritis- poa
-Also > 30 squamous cells indicating contaminated specimen. Ucx with contamination. dc abx
-blood cultures are negative.
-check stool studies as with multile loose bm.
Anemia Normocytic
-Mild drop in hemoglobin possibility of dilutional is received IV fluids
-Check anemia studies and heme test stools
Hyperbilirubinemia
- Bilirubin today is 2.4. Previously normal / no h/o elevation. Resolved.
-abdomen US with no gallstone, cholecystitis biliary ductal dilatation. Mild hepatic steatosis. Subcentimeter echogenic structure with some biliary representing hemangioma however there is no prior imaging of the liver. Left renal calculi
nonobstructive. No hydronephrosis.
Altered mental status likely secondary to progression of undiagnosed dementia suspected Alzheimer vs. low likelihood of delirum
- However, recent OP evaluation included MRI done on 12/04 which showed SEVERE bitemporal wasting c/w dementia.
- Suspect significant degree of chronic / progressive cognitive impairment.
- Case Management evaluation for discharge planning.
DVT Prophylaxis: start lovenox
Code Status: Full
PT/OT-home health. Cm aware.
Updated spouse over the phone in detail.
Anticipated Discharge: 24 - 48 hours
Subjective/Interval History
-
Date of Service: December 22, 2023
Patient states improvement in digit and foot pain
Patient remains with multiple loose bowel movements
Objective Data
-
Labs:
Laboratory Results
12/22/23 12/22/23
04:50 04:51
WBC 10.6
Hgb 9.4 L
Hct 27.8 L
Plt Count 231
Sodium 143
Potassium 4.4
Chloride 112 H
Carbon Dioxide 22
BUN 23 H
Creatinine 1.0
Glucose 92
Calcium 8.7
Total Bilirubin 0.3
AST 36
ALT 33
Alkaline Phosphatase 54
Vital Signs:
Vital Signs
Temp Pulse Resp BP Pulse Ox
97.8 F 58 16 133/64 95
12/22/23 08:21 12/22/23 08:21 12/22/23 08:21 12/22/23 08:21 12/22/23 08:21
I&O
12/21/23 12/22/23 12/23/23
06:59 06:59 06:59
Intake Total 1760 / 1760 1080 / 1080
Output Total 1825 / 1825 525 / 525
Balance -65 / -65 555 / 555
Data Reviewed
-
Total Time Spent with Patient (in minutes): 56
[2023-12-22 12:09] LABS: Iron 41 ug/dl (49-181)
[2023-12-22 12:18] LABS: Percent Saturation 18 % (20-50); Total Iron Binding Capacity 223 ug/dl (261-462)
--- NOTE | 2023-12-22 13:07 | CM ---
MD indicated pt not ready for discharge.
Spoke with Olivia [phone] explained he is not ready for dc today.
[facility] referral placed as requested .
Olivia said she will set up companions but due to holiday weekend no one available to set up.
Olivia does not drive [place] has been transporting her to hospital and back.
Pt confused .
PLAN Home with [facility] when medically ready
[2023-12-22 14:29] LABS: Folate 5.1 ng/ml (2.76-20); Vitamin B12 229 pg/ml (239-931)
[2023-12-22 15:49] VITALS: BP 128/62
[2023-12-22] MEDS: CRESTOR 5 MG PO (17:09)
[2023-12-22] MEDS: LOVENOX 40 MG SC (17:09)
[2023-12-22] MEDS: ARICEPT 5 MG PO (21:12)
[2023-12-22 23:53] VITALS: BP 134/64
[2023-12-23 07:00] VITALS: BP 131/68
[2023-12-23] MEDS: DELTASONE 40 MG PO (07:33)
[2023-12-23] MEDS: PROTONIX 40 MG PO (07:34)
[2023-12-23] MEDS: FLOMAX 0.4 MG PO (07:34)
[2023-12-23] MEDS: VITAMIN B-12 1000 MCG PO (07:34)
[2023-12-23 08:44] LABS: % Basophils 0.3 % (0-2); % Eosinophils 0.3 % (0-6); % Immature Granulocytes 0.7 % (0-0.5); % Lymphocytes 24.1 % (20.5-51.1); % Monocytes 6.9 % (1.7-9.3); % Neutrophils 67.7 % (42.2-75.2); Absolute Immature Granulocytes 0.1 10^3/uL (0-0.05); Absolute Lymphocytes 2.8 10^3/uL (1.2-3.4); Absolute Monocytes 0.8 10^3/uL (0.1-0.6); Absolute Neutrophils 7.9 10^3/uL (1.4-6.5); Hematocrit 33.1 % (39.0-52.0); Mean Corp Hgb Conc. 33.2 g/dL (33.0-37.0); Mean Corpuscular Hgb 30.7 pg (27.0-31.0); Mean Corpuscular Volume 92.5 fL (80.0-94.0); Mean Platelet Volume 11.1 fL (7.4-10.4); Nucleated Red Blood Cells % 0 % (-); Platelet Count 289 10^3/uL (130-400); Red Blood Cell Count 3.58 10^6/uL (4.70-6.10); Red Cell Dist. Width 13.2 % (11.5-14.5); White Blood Cell Count 11.7 10^3/uL (4.8-10.8)
--- NOTE | 2023-12-23 09:33 | W.PN.HOSP.TC ---
Addendum entered and electronically signed by Tom Fung MD 12/23/23 11:26:
updated spouse over the phone in details.
Original Note:
Today's Communication/Plan
-
dc home vn
Assessment / Plan
Assessment / Plan
General: nad,
HEENT: Moist mucous membranes
Respiratory: Clear; No Wheezes, Rales or Rhonchi
Cardiac: S1/S2 and Regular Rhythm; No Murmur
GI: Soft, Non Tender, Non Distended and Normal Bowel Sounds
Musculoskeletal: No Clubbing, No Cyanosis and Other (L 5th finger contracted / tender / erythematous - small abrasion over distal phalanx. b/l 1st MTP edema improved. Walking around without difficulty.
Neuro: Awake and Alert; No Oriented
A/P: Patient is an 83y M with PMH significant for gout and dementia who presents to ED complaining of bilateral foot pain.
Polyarthritis
- Seems likely that current symptoms represent gout / pseudogout.
- History is impaired by patient's cognitive issues.
- He was seen by Ortho after 11/27 ED visit and L 5th finger symptoms had improved on steroids.
- Now with recurrent L 5th finger erythema and bilateral 1st MTP erythema.
- Restart oral prednisone 40mg daily for now.
- Ortho evaluation-agrees with steroids and recs to stop abx.
- ESR/CRP high. Patient with significant improvement in lower extremity joints
Sepsis suspected secondary to viral gastroenteritis- poa
-Also > 30 squamous cells indicating contaminated specimen. Ucx with contamination. dc abx
-blood cultures are negative.
-cdiff canceleld-formed bm.
Anemia Normocytic
-Mild drop in hemoglobin possibility of dilutional is received IV fluids
-Heme test negative. B12 started.
Hyperbilirubinemia
- Bilirubin today is 2.4. Previously normal / no h/o elevation. Resolved.
-abdomen US with no gallstone, cholecystitis biliary ductal dilatation. Mild hepatic steatosis. Subcentimeter echogenic structure with some biliary representing hemangioma however there is no prior imaging of the liver. Left renal calculi
nonobstructive. No hydronephrosis.
Altered mental status likely secondary to progression of undiagnosed dementia suspected Alzheimer vs. low likelihood of delirum
- However, recent OP evaluation included MRI done on 12/04 which showed SEVERE bitemporal wasting c/w dementia.
- Suspect significant degree of chronic / progressive cognitive impairment.
- Case Management evaluation for discharge planning.
DVT Prophylaxis: start lovenox
Code Status: Full
PT/OT-home health. Cm aware.
Updated spouse over the phone in detail on 12/20, 12/21
More than 30 minutes spent in discharge including
Final examination of the patient
Summarizing hospital stay
Instructions for continuing care to all relevant caregivers
Preparation of discharge records, prescriptions, and referral forms
Total time spent (in minutes): 53
Anticipated Discharge: Today
Subjective/Interval History
-
Date of Service: December 23, 2023
denies abd pain
denies foot pain
walking around
Objective Data
-
Labs:
Laboratory Results
12/23/23
08:08
WBC 11.7 H
Hgb 11.0 L
Hct 33.1 L
Plt Count 289 D
Vital Signs:
Vital Signs
Temp Pulse Resp BP Pulse Ox
97.6 F 61 18 131/68 100
12/23/23 07:00 12/23/23 07:00 12/23/23 07:00 12/23/23 07:00 12/23/23 07:00
I&O
12/22/23 12/23/23 12/24/23
06:59 06:59 06:59
Intake Total 1080 / 1080 960 / 960
Output Total 525 / 525 150 / 150
Balance 555 / 555 810 / 810
--- NOTE | 2023-12-23 09:36 | W.DCSUMMARY ---
Discharge Summary
Discharge Data
Date of Admission: 12/19/23
Date of Discharge: 12/23/23
-
Pending Results: No
Hospital Course
83-year-old male past medical history of gout, memory loss suspected Alzheimer dementia, BPH, hyperlipidemia who is presenting with complaining of bilateral foot pain. Patient was recently seen in the ER and was evaluated by orthopedic. Patient
was reevaluated by orthopedic and recommending steroids for polyarthritis secondary to gout. Patient symptomology significantly improved with prednisone. Also suspicious for urinary tract infection on admission and was started on antibiotics.
Urine culture with contamination. Patient with no symptoms antibiotics were discontinued. Patient also had diarrhea which was same likely second to viral gastroenteritis. Patient had fever on admission which resolved. No further episode of fever
was noted. Blood cultures were negative. Patient was having formed stools and Cdiff was canceled. Patient was found to have a mild anemia and B12 levels was low. B12 supplementation was started. Heme test stool was negative. Had mild
hyperbilirubinemia and underwent abdominal ultrasound with no gallstone, cholecystitis biliary ductal dilatation. Mild hepatic steatosis. Subcentimeter echogenic structure with some biliary representing hemangioma however there is no prior imaging
of the liver. Left renal calculi nonobstructive. No hydronephrosis. Patient was recommend to hold driving until seen and evaluate by primary doctor. Patient had recent outpatient MRI with which showed SEVERE bitemporal wasting c/w dementia.
This was relayed to patient and spouse multiple times. Patient was worked with physical and Occupational Therapy and recommended home VN.
Discharge Plan
-
Patient Disposition: Home with Home Care
Discharge Diagnosis/Procedures: Polyarthritis likely 2/2 gout
Viral gastroenteritis
B12 deficiency
Condition: Fair
Diet: As tolerated
Activity: With assistance and As tolerated
Driving Restrictions: Not until seen by your Dr
Other Services: VN
Referrals:
Zafar Miller DO [Family Provider] - in less than 1 week
Prescriptions:
New
prednisone 20 mg Tablet
40 mg PO DAILY 2 Days Qty: 4 0RF
cyanocobalamin (vitamin B-12) 1,000 mcg Tablet
1,000 mcg PO DAILY 30 Days Qty: 30 0RF
Continued
donepezil 5 mg Tablet
5 mg PO HS
tamsulosin [Flomax] 0.4 mg Capsule
0.4 mg PO DAILY
rosuvastatin 5 mg Tablet
5 mg PO QPM
Discharge Orders:
Discharge Patient (As Directed); Ordered 12/23/23
Ordered By: Tom Fung
Discharge Date and Time
Print Language: BELARUSIAN
--- NOTE | 2023-12-23 10:36 | CM ---
Reviewed the chart notes. Patient is for discharge to home with [facility] services. has attempted multiple times to contact the patient's spouse with listed numbers. is not in service. gives a busy signal. Will
continue to reach out to spouse regarding patient's discharge and transportation.
[2023-12-23 13:00] VITALS: BP 128/68
== END 2023-12-23 14:13 | disposition home health service (06) | DRG 871 ==
LOC: 3 WEST ACU 04:11
PROVIDERS: ADMITTING PHYSICIAN Hospitalist; ATTENDING PHYSICIAN Hospitalist; CONSULT PHYSICIAN Orthopaedic Surgery; EMERGENCY PHYSICIAN Emergency Medicine; FAMILY PHYSICIAN Internal Medicine
DX: A41.89 Other specified sepsis (principal); G92.8 Other toxic encephalopathy; N39.0 Urinary tract infection, site not specified; K76.0 Fatty (change of) liver, not elsewhere classified; G30.9 Alzheimer's disease, unspecified; F02.A0 Dementia in other diseases classified elsewhere, mild, without behavioral disturbance, psychotic disturbance, mood disturbance, and anxiety; D64.9 Anemia, unspecified; A08.4 Viral intestinal infection, unspecified; E53.8 Deficiency of other specified B group vitamins; E78.2 Mixed hyperlipidemia; M10.9 Gout, unspecified; M13.0 Polyarthritis, unspecified; N20.0 Calculus of kidney; N40.0 Benign prostatic hyperplasia without lower urinary tract symptoms; M79.672 Pain in left foot; M79.671 Pain in right foot; E80.6 Other disorders of bilirubin metabolism; D18.03 Hemangioma of intra-abdominal structures; R35.0 Frequency of micturition; Z79.52 Long term (current) use of systemic steroids
CPT/HCPCS: 51701; 51798; 73630; 76700; 80053; 81003; 81015; 82248; 82607; 82728; 82746; 83540; 83550; 83605; 84443; 84550; 85025; 85027; 85652; 86140; 87040; 87070; 87086; 87324; 87449; 87811; 96361; 96365; 97116; 97162; 97166; 97535; 99285

== ENCOUNTER → 2024-01-01 11:11 | Outpatient (REF) | payer OTHER, SELFPAY ==
[2024-01-03 19:08] LABS: ALT (SGPT) 28 U/L (0-50); AST (SGOT) 27 U/L (17-59); Albumin 3.8 g/dl (3.5-5.0); Alkaline Phosphatase 64 U/L (38-126); Blood Urea Nitrogen 17 mg/dl (9-20); Calcium 9.4 mg/dl (8.4-10.2); Carbon Dioxide 25 mmol/L (22-30); Chloride 105 mmol/L (98-107); Glucose 103 mg/dl (70-99); HDL Cholesterol 41 mg/dl; LDL Cholesterol, Calculated 73 mg/dl; Potassium 4.5 mmol/L (3.5-5.1); Sodium 140 mmol/L (135-145); Total Cholesterol 139 mg/dl (50-199); Total Protein 6.4 g/dl (6.3-8.2); Triglyceride 126 mg/dl (10-149); Very Low Density Lipoprotein 25 mg/dl (0-30); eGFR 59.63
[2024-01-03 20:54] LABS: Folate 13.7 ng/ml (2.76-20); Vitamin B12 347 pg/ml (239-931)
[2024-01-04 09:57] LABS: Glycohemoglobin (HgbA1c) 6.1 % (4.0-5.6)
== END ==
LOC: OLABPV 11:11
PROVIDERS: ATTENDING PHYSICIAN Nurse Practitioner Family
DX: Z00.00 Encounter for general adult medical examination without abnormal findings (principal); R41.840 Attention and concentration deficit; E78.2 Mixed hyperlipidemia; M13.0 Polyarthritis, unspecified; R41.3 Other amnesia; R39.11 Hesitancy of micturition; R73.9 Hyperglycemia, unspecified
CPT/HCPCS: 36415; 80053; 80061; 82607; 82746; 83036

== ENCOUNTER 2024-04-24 18:27 | Emergency (ER) | payer OTHER, SELFPAY ==
[2024-04-24 18:30] VITALS: BP 141/64
--- NOTE | 2024-04-24 18:32 | ED.GENMED ---
ED Provider Triage
<Jose Angel Shetty PA-C - Last Filed: 04/24/24 18:34>
-
Patient seen by provider in Triage?: Seen in Triage
83 yo male presents via EMS after an unwitnessed fall. Pt denies complaints. Hx limited due to dementia. Denies headache, hip pain, back pain, or chest pain.
No external signs of injury however due to baseline dementia will send for CT head to r/o ICH/fracture as well as pelvic XR to r/o hip injury
History of Present Illness
<Jose Angel Shetty PA-C - Last Filed: 04/24/24 18:34>
General
Chief Complaint: Fall
Time Seen by Provider: 04/24/24 20:01
<Hitesh Townsend PA-C - Last Filed: 04/24/24 20:11>
General
Source: patient and ambulance crew
History of Present Illness
History of Present Illness:
83-year-old male with past medical history of mild cognitive impairment presenting to the emergency department for evaluation after he had an unwitnessed fall at [facility] part of the dementia unit. Patient states that he has no
concerns at this time and no pain. It was noted by nursing staff while in the waiting room patient was ambulating throughout the waiting room without any difficulty. Patient also tolerated food without any difficulty and is wishing to be
discharged home. Patient states he does not have any headache, vision changes, extremity related pain, chest pain, shortness of breath, symptoms of syncope. Denies any use of anti-
Past History
<Jose Angel Shetty PA-C - Last Filed: 04/24/24 18:34>
Past History
ED Past Medical History: Hypercholesterolemia (Mixed hyperlipidemia), Renal failure (Renal insufficiency) and Other (Polyarthritis, gout, mild dementia, BPH)
ED Past Surgical History: Orthopedic
Social History
Tobacco: Non-smoker
Alcohol: Daily (Occasional wine but has had no alcohol consumption for at least the past 3 to 4 weeks.)
Drug: None
Personal:
Living: with family
Employment: Retired
Family History
Family History: Other (Noncontributory)
<PAIGE Eason Last Filed: 04/24/24 20:11>
Social History
Alcohol: Occasional (Occasional wine but has had no alcohol consumption for at least the past 3 to 4 weeks.)
Living: assisted living
Review of Systems
<PAIGE Eason Last Filed: 04/24/24 20:11>
Review of Systems
All Other Systems: ROS reviewed and negative except as documented in HPI and ROS
Phy Exam
<PAIGE Eason Last Filed: 04/24/24 20:11>
Physical Exam
Physical Exam:
GENERAL: Alert , in no apparent distress
Head: Normocephalic atraumatic,
EYE: conjunctiva clear
NECK: Supple, no significant adenopathy.
ENT: o/p clr, mmm.
CARDIAC: Regular rate and rhythm
LUNGS: Clear breath sounds bilaterally, no acute respiratory distress, no wheezes/rales/rhonchi
NEUROLOGICAL: Alert and oriented, movement tremor noted to bilateral upper extremities
SKIN: Warm and dry, skin intact.
MUSCULOSKELETAL: well perfused.
PSYCH: Normal and appropriate interaction.
Scores
<PAIGE Eason Last Filed: 04/24/24 20:11>
Heart Failure Risk
Heart Failure Risk Score: Not Applicable
Heart Score for Chest Pain Patients
STEMI patient?: Not applicable
Withdrawal Assessment of Alcohol
Withdrawal Assessment Completed?: Not applicable
Course
<Jose Angel Shetty PA-C - Last Filed: 04/24/24 18:34>
Orders/Labs/Results
Orders:
Orders
04/24/24 18:31
CT Head W/o Iv Contrast Urgent
Comment:
Reason For Exam: unwitnessed fall
Vital Signs
Initial and Last Documented VS:
Initial Vital Signs
Temp Pulse Resp BP Pulse Ox
99.5 F 101 18 141/64 94
04/24/24 18:30 04/24/24 18:30 04/24/24 18:30 04/24/24 18:30 04/24/24 18:30
Last Documented Vital Signs
Temp Pulse Resp BP Pulse Ox
99.5 F 110 20 135/58 98
04/24/24 18:30 04/24/24 20:00 04/24/24 20:00 04/24/24 20:00 04/24/24 20:00
<Hitesh Townsend PA-C - Last Filed: 04/24/24 20:11>
Orders/Labs/Results
Orders:
Orders
04/24/24 18:31
CT Head W/o Iv Contrast Urgent
Comment:
Reason For Exam: unwitnessed fall
Vital Signs
Initial and Last Documented VS:
Initial Vital Signs
Temp Pulse Resp BP Pulse Ox
99.5 F 101 18 141/64 94
04/24/24 18:30 04/24/24 18:30 04/24/24 18:30 04/24/24 18:30 04/24/24 18:30
Last Documented Vital Signs
Temp Pulse Resp BP Pulse Ox
99.5 F 110 20 135/58 98
04/24/24 18:30 04/24/24 20:00 04/24/24 20:00 04/24/24 20:00 04/24/24 20:00
<Hitesh Townsend PA-C - Last Filed: 04/24/24 20:11>
MDM/Problems Addressed
Differential Diagnosis Includes:
Contusion, concussion, intracranial bleeding, syncope
MDM/Problems Addressed:
83-year-old male presenting the ER for evaluation following an accidental fall. Patient without any concerns. Head CT ordered from triage is negative for any acute intracranial pathology. Patient is ambulating steadily on his own. He is
tolerating p.o. without any difficulty. Denying any extremity related complaints and moving all extremities. He will be dispositioned back to [facility] to his living facility. Patient is otherwise stable for discharge home.
<Hitesh Townsend PA-C - Last Filed: 04/24/24 20:11>
*Radiology
Radiology exam reviewed: radiology read reviewed
*Pulse Oximetry
Patient hypoxic: no
*Critical Care Note
Total Time (30-74mins, 75-104mins- exclusive of procedures): Not Applicable
ED Attending Note
<Jose Angel Shetty PA-C - Last Filed: 04/24/24 18:34>
-
Portions of this chart may have been created with voice recognition software.� Occasional wrong word or��sound alike� substitutions may have occurred due to the inherent limitations of voice recognition software.
Discharge Plan
Departure
Patient Disposition: Home (Routine Discharge)
Date of Disposition: 04/24/24
Time of Disposition: 20:01
Patient with high blood pressure during this ER visit?: Yes
Discharge Problem:
Accidental fall
Instructions: Preventing falls in adults
Prescriptions:
No Action
donepezil 5 mg Tablet
5 mg PO HS
tamsulosin [Flomax] 0.4 mg Capsule
0.4 mg PO DAILY
rosuvastatin 5 mg Tablet
5 mg PO QPM
prednisone 20 mg Tablet
40 mg PO DAILY 2 Days Qty: 4 0RF
cyanocobalamin (vitamin B-12) 1,000 mcg Tablet
1,000 mcg PO DAILY 30 Days Qty: 30 0RF
Interventions
Interventions:
*General Assessment Last Done: 04/24/24 20:07
*Neglect/Abuse Screening Last Done: 04/24/24 20:08
ED- Fall Risk Assessment Last Done: 04/24/24 20:08
*ED COVID-19 Vaccine History Last Done: 04/24/24 20:07
ED-Musculoskeletal Assessment Last Done: 04/24/24 20:09
ED- Neurological Assessment Last Done: 04/24/24 20:09
ED-Skin Assessment Last Done: 04/24/24 20:09
Discharge Date and Time
Print Language: TURKISH
[2024-04-24 20:00] VITALS: BP 135/58
== END 2024-04-24 21:00 | disposition home or self-care (01) ==
LOC: EMR 18:27
PROVIDERS: EMERGENCY PHYSICIAN Emergency Medicine; FAMILY PHYSICIAN Internal Medicine Geriatric Medicine
DX: Z04.3 Encounter for examination and observation following other accident (principal); W19.XXXA Unspecified fall, initial encounter; R26.89 Other abnormalities of gait and mobility; F03.A0 Unspecified dementia, mild, without behavioral disturbance, psychotic disturbance, mood disturbance, and anxiety
CPT/HCPCS: 99284; 70450

== ENCOUNTER → 2025-03-31 15:20 | Outpatient (REF) | payer OTHER, SELFPAY | LOC: RAD 15:20 | PROVIDERS: ATTENDING PHYSICIAN Internal Medicine | DX: M79.641 Pain in right hand (principal); M79.89 Other specified soft tissue disorders | CPT/HCPCS: 73120 ==